=== PATIENT | male | born 1980 | race Caucasian/White ===

== ENCOUNTER 2018-09-23 21:46 | Emergency (ER) | payer OTHER ==
[~2018-09-23] VITALS: Ht 167.6 cm; Wt 77.1 kg
[~2018-09-23 21:46] MED LIST: ATRIPLA 600 MG-1 TA1 PO; AUGMENTIN 875875 MG PO; BIKTARVY 50-201 EACH PO; CLARITIN10 MG PO; FLONASE ALLERG9.9 ML NS; HYDROCODONE BIT1 T11 PO; OMEPRAZOLE20 M2 PO
[2018-09-23] MEDS ORDERED: VIBRAMYCIN100 MG PO (22:11)
== END 2018-09-23 22:27 | disposition home or self-care (01) ==
LOC: ED 21:46
DX: L73.9 Follicular disorder, unspecified (principal); F17.200 Nicotine dependence, unspecified, uncomplicated; Z86.14 Personal history of Methicillin resistant Staphylococcus aureus infection; Z88.2 Allergy status to sulfonamides; Z79.899 Other long term (current) drug therapy

== ENCOUNTER → 2019-04-11 | Emergency (ER) | payer SELFPAY ==
[~2019-04-11] VITALS: Wt 90.7 kg
[~2019-04-11] MED LIST changes: +VIBRAMYCIN100 MG PO
== END ==
LOC: ED 23:00
DX: R40.20 Unspecified coma (principal); F19.10 Other psychoactive substance abuse, uncomplicated; Z53.21 Procedure and treatment not carried out due to patient leaving prior to being seen by health care provider